=== PATIENT | male | born 1950 | race Caucasian/White ===

== ENCOUNTER → 2022-04-28 15:11 | Outpatient (CLI) | payer MEDICARE, BC, SELFPAY ==
--- NOTE | 2022-04-28 15:16 | DI.MRI.S_ITS ---
PROCEDURE: MR SHOULDER LT WO CON INDICATIONS: Pain in left shoulder TECHNIQUE: Noncontrast oblique coronal T2 fast spin echo with fat saturation, oblique sagittal T1 spin echo and T2 fast spin echo with fat saturation, axial T1 spin echo and T2 fast spin echo with fat saturation through the shoulder. COMPARISON: [facility] [place], CR, XR SHOULDER 2+ VIEWS LEFT, 04/22/2022, 10:52. FINDINGS: Image quality: Excellent. Rotator cuff: There is full-thickness tear of the supraspinatus and infraspinatus tendons. There is supraspinatus and infraspinatus tendon retraction to the musculotendinous junction and moderate to severe supraspinatus and infraspinatus muscle atrophy. There is partial-thickness tear of the subscapularis tendon and superimposed tendinosis. No subscapularis muscle atrophy. The teres minor tendon is intact. Bones and bursae: No bone marrow contusions or fractures. Moderate acromioclavicular and glenohumeral joint degeneration. The acromion demonstrates conventional anatomy, without an os acromiale. Moderate glenohumeral joint effusion. No pathologic subacromial-subdeltoid or subcoracoid bursal fluid is present. Capsule and soft tissues: There is degenerative tear of the superior labrum. The long head of the biceps tendon demonstrates normal location and morphology. The rotator interval appears normal, without fibrosis. The coracohumeral ligament is normal in thickness. IMPRESSION: 1. Full-thickness tear of the supraspinatus and infraspinatus tendons with tendon retraction and muscle atrophy. 2. Partial thickness tear of the subscapularis tendon and superimposed tendinosis. No subscapularis muscle atrophy. 3. Degenerative superior labral tear. 4. Moderate acromioclavicular and glenohumeral joint degeneration. Dictated by: Ana Cristina Donald M.D. on 04/28/2022 at 16:14 Approved by: Ana Cristina Donald M.D. on 04/29/2022 at 9:37
== END ==
PROVIDERS: Family Provider Family Medicine; PCP Family Medicine; Referring Provider Physical Medicine & Rehabilitation Pain Medicine; Visit Provider Physical Medicine & Rehabilitation Pain Medicine
DX: M75.122 Complete rotator cuff tear or rupture of left shoulder, not specified as traumatic (principal); S43.492A Other sprain of left shoulder joint, initial encounter; M19.012 Primary osteoarthritis, left shoulder; M25.512 Pain in left shoulder
CPT/HCPCS: 73221